=== PATIENT | male | born 1930 | race Caucasian/White ===

== ENCOUNTER → 2017-03-08 | Outpatient (REF) | payer MEDICARE, OTHER ==
[2017-03-08 12:31] LABS: ALBUMIN 3.6 GM/DL (3.2-5.2); ALBUMIN/GLOBULIN RATIO 1.06 (1.00-1.93); BILIRUBIN,TOTAL 0.3 MG/DL (0.2-1.0); CALCIUM LEVEL 9.1 MG/DL (8.8-10.2); CREATININE FOR GFR 1.56 MG/DL (0.70-1.30); GLOMERULAR FILTRATION RATE 45.3 (>35); POTASSIUM SERUM 4.9 MEQ/L (3.5-5.1)
== END ==
LOC: M SFHCPLAZ 09:29
PROVIDERS: ATTEND Internal Medicine
DX: I10 Essential (primary) hypertension (principal); E11.9 Type 2 diabetes mellitus without complications; E78.00 Pure hypercholesterolemia, unspecified

== ENCOUNTER → 2017-07-20 | Outpatient (REF) | payer MEDICARE, OTHER ==
[2017-07-20 13:57] LABS: ALBUMIN 3.6 GM/DL (3.2-5.2); ALBUMIN/GLOBULIN RATIO 1.03 (1.00-1.93); BILIRUBIN,TOTAL 0.5 MG/DL (0.2-1.0); CALCIUM LEVEL 9.5 MG/DL (8.8-10.2); CREATININE FOR GFR 2.02 MG/DL (0.70-1.30); GLOMERULAR FILTRATION RATE 33.5 (>35); MAGNESIUM LEVEL 2.5 MG/DL (1.8-2.4); TOTAL PROTEIN 7.1 GM/DL (6.4-8.2)
[2017-07-20 14:03] LABS: POTASSIUM SERUM 5.4 MEQ/L (3.5-5.1)
[2017-07-20 14:16] LABS: MEAN CORPUSCULAR HEMOGLOBIN 32.7 pg (27.0-33.0); MEAN CORPUSCULAR HGB CONC 34.1 g/dl (32.0-36.5); MEAN CORPUSCULAR VOLUME 95.9 fl (80.0-96.0); RED CELL DISTRIBUTION WIDTH 12.2 % (11.5-14.5); WHITE BLOOD COUNT 4.9 K/mm3 (4.0-10.0)
== END ==
LOC: M SFHCPLAZ 08:25
PROVIDERS: ATTEND Internal Medicine
DX: Z85.46 Personal history of malignant neoplasm of prostate (principal); E11.9 Type 2 diabetes mellitus without complications; I10 Essential (primary) hypertension

== ENCOUNTER → 2018-03-06 | Outpatient (REF) | payer MEDICARE, OTHER ==
[2018-03-06 12:45] LABS: HEMATOCRIT 37.4 % (42.0-52.0); HEMOGLOBIN 12.2 g/dl (13.5-17.5); MEAN CORPUSCULAR HEMOGLOBIN 31.6 pg (27.0-33.0); MEAN CORPUSCULAR HGB CONC 32.6 g/dl (32.0-36.5); MEAN CORPUSCULAR VOLUME 96.9 fl (80.0-96.0); PLATELET COUNT, AUTOMATED 190 10^3/uL (150-450); RED BLOOD COUNT 3.86 10^6/uL (4.30-6.10); RED CELL DISTRIBUTION WIDTH 12.7 % (11.5-14.5); WHITE BLOOD COUNT 5.8 10^3/uL (4.0-10.0)
[2018-03-06 12:54] LABS: ALBUMIN 3.4 GM/DL (3.2-5.2); ALBUMIN/GLOBULIN RATIO 0.94 (1.00-1.93); ALKALINE PHOSPHATASE 117 U/L (45-117); ALT/SGPT 16 U/L (12-78); ANION GAP 4 MEQ/L (8-16); AST/SGOT 12 U/L (7-37); BILIRUBIN,TOTAL 0.3 MG/DL (0.2-1.0); BLOOD UREA NITROGEN 33 MG/DL (7-18); CALCIUM LEVEL 9.3 MG/DL (8.8-10.2); CARBON DIOXIDE LEVEL 27 MEQ/L (21-32); CHLORIDE LEVEL 110 MEQ/L (98-107); CHOLESTEROL LEVEL 162 MG/DL (<200); CHOLESTEROL RISK RATIO 2.281 (<5); CREATININE FOR GFR 1.93 MG/DL (0.70-1.30); GLOMERULAR FILTRATION RATE 35.3 (>35); GLUCOSE, FASTING 141 MG/DL (70-100); HDL CHOLESTEROL 71 MG/DL (>40); LDL CHOLESTEROL 63.6 MG/DL (<100); MAGNESIUM LEVEL 2.4 MG/DL (1.8-2.4); NON-HDL-C 91 MG/DL; SODIUM LEVEL 141 MEQ/L (136-145); TRIGLYCERIDES LEVEL 137 MG/DL (<150)
[2018-03-06 12:55] LABS: POTASSIUM SERUM 5.3 MEQ/L (3.5-5.1)
[2018-03-06 13:45] LABS: MALB URINE SIEMENS 17.6 MG/L; MAU/CREAT RATIO 15.4 MCG/MG (0.0-30.0)
[2018-03-06 14:47] LABS: ESTIMATED AVERAGE GLUCOSE 151 MG/DL (60-110); HEMOGLOBIN A1c 6.9 %
[2018-03-06 20:57] LABS: PTH INTACT 30.8 PG/ML (18.5-88.0)
== END ==
LOC: M SFHCPLAZ 08:10
DX: N18.3 Chronic kidney disease, stage 3 (moderate) (principal); Z85.46 Personal history of malignant neoplasm of prostate; E11.9 Type 2 diabetes mellitus without complications; E78.00 Pure hypercholesterolemia, unspecified; I12.9 Hypertensive chronic kidney disease with stage 1 through stage 4 chronic kidney disease, or unspecified chronic kidney disease
CPT/HCPCS: 83735

== ENCOUNTER → 2018-07-11 | Outpatient (REF) | payer MEDICARE, OTHER ==
[2018-07-11 11:06] LABS: HEMATOCRIT 36.6 % (42.0-52.0); HEMOGLOBIN 12.2 g/dl (13.5-17.5); MEAN CORPUSCULAR HEMOGLOBIN 31.5 pg (27.0-33.0); MEAN CORPUSCULAR HGB CONC 33.3 g/dl (32.0-36.5); MEAN CORPUSCULAR VOLUME 94.6 fl (80.0-96.0); PLATELET COUNT, AUTOMATED 196 10^3/uL (150-450); RED BLOOD COUNT 3.87 10^6/uL (4.30-6.10); RED CELL DISTRIBUTION WIDTH 12.7 % (11.5-14.5)
[2018-07-11 11:46] LABS: ALBUMIN 3.4 GM/DL (3.2-5.2); ALKALINE PHOSPHATASE 120 U/L (45-117); ALT/SGPT 15 U/L (12-78); ANION GAP 6 MEQ/L (8-16); AST/SGOT 13 U/L (7-37); BILIRUBIN,TOTAL 0.4 MG/DL (0.2-1.0); BLOOD UREA NITROGEN 31 MG/DL (7-18); CALCIUM LEVEL 9.6 MG/DL (8.8-10.2); CARBON DIOXIDE LEVEL 28 MEQ/L (21-32); CHLORIDE LEVEL 109 MEQ/L (98-107); CREATININE FOR GFR 1.82 MG/DL (0.70-1.30); GLOMERULAR FILTRATION RATE 37.7 (>35); GLUCOSE, FASTING 135 MG/DL (70-100); MAGNESIUM LEVEL 2.4 MG/DL (1.8-2.4); POTASSIUM SERUM 5.4 MEQ/L (3.5-5.1); SODIUM LEVEL 143 MEQ/L (136-145); TOTAL PROTEIN 7.1 GM/DL (6.4-8.2)
[2018-07-11 12:55] LABS: ALBUMIN/GLOBULIN RATIO 1.09 (1.00-1.93)
[2018-07-11 20:05] LABS: ESTIMATED AVERAGE GLUCOSE 143 MG/DL (60-110); HEMOGLOBIN A1c 6.6 %
== END ==
LOC: M SFHCPLAZ 08:50
DX: N18.3 Chronic kidney disease, stage 3 (moderate) (principal); I10 Essential (primary) hypertension; Z85.46 Personal history of malignant neoplasm of prostate
CPT/HCPCS: 83735

== ENCOUNTER → 2019-03-13 | Outpatient (REF) | payer MEDICARE, OTHER ==
[2019-03-13 10:38] LABS: HEMATOCRIT 36.3 % (42.0-52.0); HEMOGLOBIN 11.5 g/dl (13.5-17.5); MEAN CORPUSCULAR HEMOGLOBIN 30.3 pg (27.0-33.0); MEAN CORPUSCULAR HGB CONC 31.7 g/dl (32.0-36.5); MEAN CORPUSCULAR VOLUME 95.5 fl (80.0-96.0); PLATELET COUNT, AUTOMATED 208 10^3/uL (150-450); WHITE BLOOD COUNT 6.2 10^3/uL (4.0-10.0)
[2019-03-13 10:50] LABS: CREATININE, URINE 46.7 MG/DL; MALB URINE SIEMENS 46.5 MG/L; MAU/CREAT RATIO 99.5 MCG/MG (0.0-30.0)
[2019-03-13 10:54] LABS: ALBUMIN 3.1 GM/DL (3.2-5.2); BILIRUBIN,TOTAL 0.5 MG/DL (0.2-1.0); CALCIUM LEVEL 9.4 MG/DL (8.8-10.2); CHOLESTEROL RISK RATIO 2.135 (<5); CREATININE FOR GFR 1.75 MG/DL (0.70-1.30); GLOMERULAR FILTRATION RATE 39.4 (>35); MAGNESIUM LEVEL 2.1 MG/DL (1.8-2.4); POTASSIUM SERUM 4.8 MEQ/L (3.5-5.1); PTH INTACT 26.8 PG/ML (18.5-88.0)
[2019-03-13 13:23] LABS: HEMOGLOBIN A1c 7.2 %
== END ==
LOC: M SFHCPLAZ 07:46
PROVIDERS: ATTEND Internal Medicine
DX: N18.3 Chronic kidney disease, stage 3 (moderate) (principal); I12.9 Hypertensive chronic kidney disease with stage 1 through stage 4 chronic kidney disease, or unspecified chronic kidney disease; E78.00 Pure hypercholesterolemia, unspecified; E11.9 Type 2 diabetes mellitus without complications; Z85.46 Personal history of malignant neoplasm of prostate

== ENCOUNTER → 2019-03-21 | Outpatient (REF) | payer MEDICARE, OTHER ==
[~2019-03-21] MED LIST: AMOX500C PO; ATOR1TAB19 PO; BENA10TA6 PO; BIMA01SOL OU; CALC600T57 PO; CIPR-250 PO; CLOP75TA2 PO; FURO20TA2 PO; GLYB5TA PO; HYDR10TAB PO; HYDR25TAB PO; KP F1200 PO; LASI20TA3 PO; METO1TAB7 PO; ONETAB9 PO; TIMO0.5S29 OU; TRAM50TA2 PO
[2019-03-21 13:37] LABS: AMORPHOUS SEDIMENT SMALL (NEGATIVE); APPEARANCE, URINE CLEAR (CLEAR); BACTERIA, URINE AUTO NEGATIVE (NEGATIVE); BILIRUBIN, URINE AUTO NEGATIVE (NEGATIVE); BLOOD, URINE BLOOD 1+ (NEGATIVE); COLOR, URINE YELLOW (YELLOW); GLUCOSE, URINE (UA) AUTO 2+ mg/dL (NEGATIVE); KETONE, URINE AUTO NEGATIVE (NEGATIVE); LEUKOCYTE ESTERASE, URINE AUTO 2+ (NEGATIVE); NITRITE, URINE AUTO NEGATIVE (NEGATIVE); PROTEIN, URINE AUTO NEGATIVE (NEGATIVE); RBC, URINE AUTO 20 /HPF (0-3); SQUAMOUS EPITHELIAL CELL UR AU 0 /HPF (0-6); UROBILINOGEN, URINE AUTO 0.2 mg/dL (0.0-2.0); WBC, URINE AUTO 22 /HPF (0-3)
== END ==
LOC: M SFHCPLAZ 10:49
PROVIDERS: ATTEND Internal Medicine
DX: Z87.448 Personal history of other diseases of urinary system (principal)
CPT/HCPCS: 69209; 81001; 87086; G0463

== ENCOUNTER 2019-03-26 07:39 | Inpatient (IN) | payer MEDICARE, OTHER ==
[~2019-03-26] VITALS: Ht 177.8 cm; Wt 88.5 kg
[2019-03-26] MEDS ORDERED: CLOP75TA2 PO (08:03)
[2019-03-26] MEDS ORDERED: HYDR25TAB PO (08:03)
[2019-03-26] MEDS ORDERED: METO1TAB7 PO (08:03)
[2019-03-26] MEDS ORDERED: ATOR1TAB19 PO (08:03)
[2019-03-26] MEDS ORDERED: GLYB5TA PO (08:03)
[2019-03-26] MEDS ORDERED: BENA10TA6 PO (08:03)
[2019-03-26] MEDS ORDERED: AMOX500C PO (08:03)
[2019-03-26 08:20] LABS: BASO # 0.1 10^3/uL (0.0-0.2); BASO % 0.6 % (0.0-1.0); EOS # 0.1 10^3/uL (0.0-0.50); HEMATOCRIT 35.9 % (42.0-52.0); HEMOGLOBIN 11.5 g/dl (13.5-17.5); LYMPH # 2.3 10^3/uL (1.5-4.5); LYMPH % 22.9 % (24.0-44.0); MEAN CORPUSCULAR HEMOGLOBIN 30.2 pg (27.0-33.0); MEAN CORPUSCULAR VOLUME 94.2 fl (80.0-96.0); MONO # 0.6 10^3/uL (0.0-0.8); MONO % 5.7 % (0.0-5.0); NEUTROPHILS # 6.9 10^3/uL (1.8-7.7); NEUTROPHILS % 69.4 % (36.0-66.0); PLATELET COUNT, AUTOMATED 177 10^3/uL (150-450); RED BLOOD COUNT 3.81 10^6/uL (4.30-6.10); WHITE BLOOD COUNT 9.9 10^3/uL (4.0-10.0)
[2019-03-26 08:24] LABS: VENOUS BASE EXCESS -1.7 (-2.0-2.0); VENOUS HCO3 24.1 MEQ/L (23.0-27.0); VENOUS O2 SATURATION 91.9 % (60.0-80.0); VENOUS PARTIAL PRESSURE CO2 45.3 mmHg (38.0-50.0); VENOUS PH 7.344 UNITS (7.330-7.430); VENOUS STANDARD HCO3 22.9 MEQ/L; VENOUS TOTAL CO2 25.5 MEQ/L (24.0-28.0)
--- NOTE | 2019-03-26 08:29 | REP ---
Clinical: Cough and dyspnea. Comparison: None. Findings: Cardiomegaly is appreciated along with diffuse chronic interstitial changes. No obvious focal consolidation or effusion. No pneumothorax. Skeletal structures demonstrate age-related changes. Impression: Cardiomegaly and chronic appearing changes. No focal consolidation or effusion. Electronically Signed by Renny Moscoso MD 03/26/2019 08:21 A
[2019-03-26 08:31] LABS: INR 0.94; PROTHROMBIN TIME 12.7 SECONDS (12.1-14.4)
[2019-03-26 08:49] LABS: ALBUMIN 3.3 GM/DL (3.2-5.2); BILIRUBIN,DIRECT 0.1 MG/DL (0.0-0.2); BILIRUBIN,TOTAL 0.4 MG/DL (0.2-1.0); CALCIUM LEVEL 9.4 MG/DL (8.8-10.2); CREATININE FOR GFR 2.06 MG/DL (0.70-1.30); GLOMERULAR FILTRATION RATE 32.7 (>35); MB/CK RELATIVE INDEX 0.64 (< OR =4); POTASSIUM SERUM 4.1 MEQ/L (3.5-5.1); THYROID STIMULATING HORMONE 2.45 uIU/ML (0.358-3.740); TOTAL PROTEIN 6.7 GM/DL (6.4-8.2); TROPONIN I 0.07 NG/ML (< 0.10)
[2019-03-26] MEDS ORDERED: FUROSEMIDE 100 MG/10 ML VIAL (J1940) IV ONE (09:00)
[2019-03-26] MEDS: METOPROLOL SUCC (TopROL XL) 50MG **XL** TAB PO SCH (09:00)
[2019-03-26] MEDS ORDERED: LISINOPRIL 5 MG TAB PO SCH (09:00)
--- NOTE | 2019-03-26 09:57 | REP ---
Clinical: Bilateral pain and swelling . Technique: Gautam scale and color Doppler evaluation using linear high frequency transducer. Findings: Ultrasound examination of the right and left lower extremity deep venous structures from the common femoral vein to the popliteal vein demonstrates normal compressibility flow and wave patterns in response to respiration and augmentation. There is no evidence for deep venous thrombosis. Incidental bilateral complex Valdez's cysts measuring 2.5 x 0.4 x 1.8 cm on the right and 4.7 x 0.6 x 2.9 cm on the left. Impression: No evidence for deep venous thrombosis. Bilateral Valdez's cyst. Electronically Signed by Renny Moscoso MD 03/26/2019 09:49 A
[2019-03-26 10:56] LABS: MB/CK RELATIVE INDEX 0.9 (< OR =4); TROPONIN I 0.21 NG/ML (< 0.10)
[2019-03-26] MEDS ORDERED: MOM 30ML SUSPENSION UDC PO PRN (12:30)
[2019-03-26] MEDS ORDERED: ACETAMINOPHEN TAB 650MG DOSE (2X325MG) PO PRN (12:30)
[2019-03-26] MEDS ORDERED: MAALOX 30 ML SUSP *UDC PO PRN (12:30)
[2019-03-26] MEDS ORDERED: BIMA01SOL OU (12:39)
[2019-03-26] MEDS ORDERED: TIMO0.5S29 OU (12:39)
[2019-03-26] MEDS ORDERED: DEXTROSE 50% 50 ML SYRINGE IV PRN (12:45)
[2019-03-26] MEDS ORDERED: GLUCAGON FOR INJ 1 MG VIAL (J1610) SC PRN (12:45)
[2019-03-26] MEDS ORDERED: GLUCOSE 4 GM CHEW TABLET PO PRN (12:45)
[2019-03-26] MEDS: HumaLOG INSULIN (NovoLOG) PER UNIT SC SCH ×3 (13:05→20:48)
[2019-03-26 15:00] VITALS: BP 180/68; O2SAT 98
[2019-03-26] MEDS ORDERED: SLF 3 ML SYR IV PRN (15:45)
[2019-03-26 16:00] VITALS: BP 192/72; O2SAT 100
[2019-03-26] MEDS: HEPARIN SOD (PORCINE) 5000 UNITS/ML VIAL SC SCH ×2 (16:06→21:23)
[2019-03-26 17:00] VITALS: O2SAT 99
[2019-03-26] MEDS ORDERED: hydrALAZINE INJ 20 MG/ML VIAL IV PRN (18:45)
[2019-03-26 20:00] VITALS: BP 170/82
[2019-03-26] MEDS: DOCUSATE SODIUM 100 MG CAP PO SCH (21:00)
--- NOTE | 2019-03-26 21:01 | ECGEPIP ---
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
[2019-03-26] MEDS: FUROSEMIDE 40 MG/4 ML VIAL (J1940) IV SCH (21:22)
[2019-03-26] MEDS: CLOPIDOGREL 75 MG TAB PO SCH (21:22)
[2019-03-26] MEDS: ATORVASTATIN 5MG PER 1/2 TABLET PO SCH (21:23)
[2019-03-26] MEDS: SLF 3 ML SYR IV SCH (21:23)
[2019-03-26 23:59] VITALS: BP 162/76
[2019-03-27 03:40] LABS: HEMATOCRIT 34.5 % (42.0-52.0); HEMOGLOBIN 11.1 g/dl (13.5-17.5); MEAN CORPUSCULAR HEMOGLOBIN 29.9 pg (27.0-33.0); MEAN CORPUSCULAR HGB CONC 32.2 g/dl (32.0-36.5); PLATELET COUNT, AUTOMATED 178 10^3/uL (150-450); RED BLOOD COUNT 3.71 10^6/uL (4.30-6.10); WHITE BLOOD COUNT 6.2 10^3/uL (4.0-10.0)
[2019-03-27 04:00] VITALS: BP 175/73
[2019-03-27 04:01] LABS: CREATININE FOR GFR 2.27 MG/DL (0.70-1.30); GLOMERULAR FILTRATION RATE 29.2 (>35); POTASSIUM SERUM 3.8 MEQ/L (3.5-5.1)
[2019-03-27 04:02] LABS: ALBUMIN 2.9 GM/DL (3.2-5.2); BILIRUBIN,TOTAL 0.5 MG/DL (0.2-1.0); CALCIUM LEVEL 8.9 MG/DL (8.8-10.2); TOTAL PROTEIN 6.6 GM/DL (6.4-8.2)
[2019-03-27] MEDS: HEPARIN SOD (PORCINE) 5000 UNITS/ML VIAL SC SCH ×3 (05:42→20:49)
[2019-03-27] MEDS: SLF 3 ML SYR IV SCH ×3 (05:42→20:50)
--- NOTE | 2019-03-27 07:36 | HPEPDOC ---
General Date of Admission March 26, 2019 at 12:27 Date of Service: March 26, 2019 Attending Physician: TORREY RANGEL MD Chief Complaint The patient is a 88-year-old male admitted with a reason for visit of CHF. Source: Patient, Family Exam Limitations: No limitations Timing/Duration: 1-3 hours Severity: Moderate Associated Symptoms: Shortness of breath History of Present Illness White male with past medical history of CAD, hypertension, diabetes, hyperlipidemia, history of pacemaker secondary to sick sinus syndrome developed sudden onset of shortness of breath, 1 hour prior to the presentation in ED, not associated with chest pain, nausea, vomiting. Onset was sudden persistent and resolved while he got treatment in ED. No relief with position or any medication except Lasix and not increased with any position, either. Home Medications Scheduled Amoxicillin (Amoxicillin) 500 Mg Capsule, 2,000 MG PO ASDIRECTED, (Reported) TO TAKE PRIOR TO DENTAL APPT Atorvastatin Calcium (Atorvastatin Calcium) 10 Mg Tablet, 5 MG PO 3XW, (Reported) QHS: MON,WED,TUE Benazepril HCl (Benazepril HCl) 10 Mg Tablet, 10 MG PO DAILY, (Reported) Bimatoprost (Lumigan) 0.01% 2.5ML Drops, 1 DROP OU QHS, (Reported) Clopidogrel Bisulfate (Clopidogrel) 75 Mg Tablet, 75 MG PO QHS, (Reported) Glyburide (Glyburide) 5 Mg Tablet, 5 MG PO DAILY, (Reported) Hydrochlorothiazide (Hydrochlorothiazide) 25 Mg Tablet, 12.5 MG PO DAILY, (R eported) Metoprolol Succinate (Metoprolol Succinate) 50 Mg Tab.er.24h, 50 MG PO DAILY, (Reported) Timolol Maleate (Timolol Maleate) 0.5% 5ML Drops, 1 DROP OU QAM, (Reported) Allergies Coded Allergies: No Known Allergies (Unverified , 03/26/19) Past Medical History Medical History Hypertension, type 2 diabetes mellitus, hyperlipidemia, CAD with 2 stents. 6 sinus syndrome Surgical History History of prostate surgery Social History * Smoker: Denies Drugs: denies A-FIB/CHADSVASC A-FIB History Current/History of A-Fib/PAF?: No Current PO Anticoag Therapy: No Review of Systems Constitutional: Denies: Chills, Fever, Malaise, Night Sweats, Weakness, Fatigue, Weight Loss, Lethargy, Other Eyes: Denies: Pain, Vision change, Conjunctivae inflammation, Eyelid in flammation, Redness, Other ENT: Denies: Head Aches, Ear Pain, Dysphagia, Sinus Congestion, Post Nasal Drip, Sore Throat, Epistaxis, Other Symptoms Skin: Denies: Rash, Lesions, Jaundice, Bruising, Itching, Dry, Breakdown, Nail Changes, Other Pulmonary: Reports: Dyspnea; Denies: Cough, Pleuritic Chest Pain, Other Symptoms Cardiovascular: Denies: Chest Pain, Palpitations, Orthopnea, Paroxysmal Noc. Dyspnea, Edema, Lt Headedness, Other Symptoms Gastrointestinal: Denies: Nausea, Vomiting, Abdominal Pain, Diarrhea, Constipation, Melena, Hematochezia, Other Symptoms Genitourinary: Denies: Dysuria, Frequency, Incontinence, Hematuria, Retention, Other Symptoms Hematologic: Denies: Bruising, Bleeding Excessively, Petecchia, Purpura, Enlarged Lymph Nodes, Other Hematologic Endocrine: Denies: Polydipsia, Polyphagia, Polyuria, Heat Intolerance, Cold Intolerance, Other Endocrine Sx Musculoskeletal: Denies: Neck Pain, Back Pain, Shoulder Pain, Arm Pain, Hand Pain, Leg Pain, Foot Pain, Joint Pain, Muscle Pain, Spasms, Other Symptoms Neurological: Denies: Weakness, Numbness, Incoordination, Change in speech, Confusion, Seizures, Other Symptoms Psych: Denies: Mood Normal, Anxiety, Depression, Memory Issues, Thoughts of Self Harm, Anger, Thoughts of Harming Other, Other Psych Physical Examination General Exam: Positive: Alert, Cooperative Eye Exam: Positive: PERRLA, Conjunctiva & lids normal ENT Exam: Positive: Atraumatic, Mucous membr. moist/pink Neck Exam: Positive: Supple Chest Exam: Positive: Other Heart Exam: Positive: Rate Normal (I lateral basal bronchitis), Normal S1, Normal S2, Murmurs (pansystolic murmur at second intercostal space) Abdomen Exam: Positive: Normal bowel sounds Extremity Exam: Positive: Normal pulses Skin Exam: Positive: Nl turgor and temperature Neuro Exam: Positive: Normal Gait Vital Signs Vital Signs Date Time Temp Pulse Resp B/P (MAP) Pulse Ox O2 Delivery O2 Flow Rate FiO2 03/27/19 04:00 2.0 03/27/19 04:00 96.5 62 20 175/73 (107) 99 03/26/19 17:00 Nasal Cannula Laboratory Data Labs 24H Laboratory Tests 2 03/26/19 08:02: Immature Granulocyte % (Auto) 0.4, White Blood Count 9.9, Red Blood Count 3.81L, Hemoglobin 11.5L, Hematocrit 35.9L, Mean Corpuscular Volume 94.2, Mean Corpuscular Hemoglobin 30.2, Mean Corpuscular Hemoglobin Concent 32.0, Red Cell Distribution Width 13.5, Platelet Count 177, Neutrophils (%) (Auto) 69.4H, Lymphocytes (%) (Auto) 22.9L, Monocytes (%) (Auto) 5.7H, Eosinophils (%) (Auto) 1.0, Basophils (%) (Auto) 0.6, Neutrophils # (Auto) 6.9, Lymphocytes # (Auto) 2.3, Monocytes # (Auto) 0.6, Eosinophils # (Auto) 0.1, Basophils # (Auto) 0.1, Nucleated Red Blood Cells % (auto) 0.0, Prothrombin Time 12.7, Prothromb Time International Ratio 0.94, Blood Gas Bicarbonate Standard 22.9, Venous Blood pH 7.344, Venous Blood Partial Pressure CO2 45.3, Venous Blood Partial Pressure O2 66.0H, Venous Blood Total Carbon Dioxide 25.5, Venous Blood HCO3 24.1, Venous Blood Oxygen Saturation 91.9H, Venous Blood Base Excess -1.7, Anion Gap 9, Glomerular Filtration Rate 32.7L, Lactic Acid Level 2.4*H, Calcium Level 9.4, Aspartate Amino Transf (AST/SGOT) 17, Alanine Aminotransferase (ALT/SGPT) 15, Alkaline Phosphatase 132H, Total Bilirubin 0.4, Direct Bilirubin 0.1, Total Creatine Kinase 408H, Creatine Kinase MB 3.0, Creatine Kinase MB Relative Index 0.64, Troponin I 0.07, YE-Hrn-Y-Type Natriuretic Peptide 4990H, Total Protein 6.7, Albumin 3.3, Albumin/Globulin Ratio 0.97L, Thyroid Stimulating Hormone (TSH) 2.450 03/26/19 10:06: Total Creatine Kinase 398H, Creatine Kinase MB 4.0H, Creatine Kinase MB Relative Index 0.90, Troponin I 0.21#H 03/26/19 12:21: Lactic Acid Followup at 4 Hours 1.6 03/26/19 12:57: Bedside Glucose (Misc Panel) 107 03/26/19 16:34: Bedside Glucose (Misc Panel) 203H 03/26/19 19:28: Troponin I 0.93#H 03/26/19 20:47: Bedside Glucose (Misc Panel) 113H 03/27/19 03:22: Troponin I 0.63#H, Nucleated Red Blood Cells % (auto) 0.0, Anion Gap 10, Glomerular Filtration Rate 29.2L, Blood Urea Nitrogen 42H, Creatinine 2.27H, Sodium Level 145, Potassium Level 3.8, Chloride Level 103, Carbon Dioxide Level 32, Calcium Level 8.9, Aspartate Amino Transf (AST/SGOT) 16, Alanine Am inotransferase (ALT/SGPT) 14, Alkaline Phosphatase 118H, Total Bilirubin 0.5, Total Protein 6.6, Albumin 2.9L, Magnesium Level 2.0, NA-Nwp-G-Type Natriuretic Peptide 92448O, Albumin/Globulin Ratio 0.78L CBC/BMP Laboratory Tests 03/26/19 08:02 Red Blood Count 3.81 L, Mean Corpuscular Volume 94.2, Mean Corpuscular Hemoglobin 30.2, Mean Corpuscular Hemoglobin Concent 32.0, Red Cell Distribution Width 13.5, Neutrophils (%) (Auto) 69.4 H, Lymphocytes (%) (Auto) 22.9 L, Monocytes (%) (Auto) 5.7 H, Eosinophils (%) (Auto) 1.0, Basophils (%) (Auto) 0.6, Neutrophils # (Auto) 6.9, Lymphocytes # (Auto) 2.3, Monocytes # (Auto) 0.6, Eosinophils # (Auto) 0.1, Basophils # (Auto) 0.1 03/27/19 03:22 Red Blood Count 3.71 L, Mean Corpuscular Volume 93.0, Mean Corpuscular Hemoglobin 29.9, Mean Corpuscular Hemoglobin Concent 32.2, Red Cell Distribution Width 13.6, Calcium Level 8.9, Aspartate Amino Transf (AST/SGOT) 16, Alanine Aminotransferase (ALT/SGPT) 14, Alkaline Phosphatase 118 H, Total Bilirubin 0.5, Total Protein 6.6, Albumin 2.9 L Microbiology Microbiology 03/26/19 Blood Culture, Received Pending 03/26/19 Blood Culture, Received Pending Problems (1) CHF (congestive heart failure) Status: Acute Response to Treatment: Improving Problem Specific Plan: Consult Specialist Problem Text: Admit to PCU Telemetry monitoring Strict intake and output Lasix 40 mg IV every 12 hours Control hypertension with hydralazine when necessary add lisinopril 5 mg by mouth daily Continue home meds including beta blockers and statins Cardiology consult was called from the ED Dr. Montes to see the patient Bed rest with bathroom privileges DVT prophylaxis with Lovenox Diet 2 g sodium Discussed with patient and his at bedside Plan / VTE VTE Prophylaxis Ordered?: Yes TORREY RANGEL MD March 27, 2019 07:35
[2019-03-27 08:00] VITALS: BP 184/80
[2019-03-27] MEDS: LISINOPRIL 5 MG TAB PO SCH (08:19)
[2019-03-27] MEDS: HumaLOG INSULIN (NovoLOG) PER UNIT SC SCH ×4 (08:19→20:47)
[2019-03-27] MEDS: FUROSEMIDE 40 MG/4 ML VIAL (J1940) IV SCH ×2 (08:20→20:48)
[2019-03-27] MEDS: **hydrALAZINE** 10 MG TAB PO SCH ×3 (08:20→20:49)
[2019-03-27] MEDS: DOCUSATE SODIUM 100 MG CAP PO SCH ×2 (08:21→20:48)
[2019-03-27] MEDS: METOPROLOL SUCC (TopROL XL) 50MG **XL** TAB PO SCH (08:21)
--- NOTE | 2019-03-27 11:06 | IPNPDOC ---
Subjective Date Seen The patient was seen on 03/27/19. Subjective Chief Complaint/HPI GEN. Feels much better. Shortness of breath has resolved. The he put out 2.5 L of urine last 24 hours General: Denies: ROS Unobtainable, Chills, Night Sweats, Fatigue, Malaise, Normal Appetite, Other Symptoms Constitutional: Denies: Chills, Fever, Malaise, Night Sweats, Weakness, Fatigue, Weight Loss, Lethargy, Other Eyes: Denies: Pain, Vision change, Conjunctivae inflammation, Eyelid inflammation, Redness, Other ENT: Denies: Head Aches, Ear Pain, Dysphagia, Sinus Congestion, Post Nasal Drip, Sore Throat, Epistaxis, Other Symptoms Skin: Denies: Rash, Lesions, Jaundice, Bruising, Itching, Dry, Breakdown, Nail Changes, Other Pulmonary: Denies: Dyspnea, Cough, Pleuritic Chest Pain, Other Symptoms Cardiovascular: Denies: Chest Pain, Palpitations, Orthopnea, Paroxysmal Noc. Dyspnea, Edema, Lt Headedness, Other Symptoms Gastrointestinal: Denies: Nausea, Vomiting, Abdominal Pain, Diarrhea, Constipation, Melena, Hematochezia, Other Symptoms Genitourinary: Denies: Dysuria, Frequency, Incontinence, Hematuria, Retention, Other Symptoms Hematologic: Denies: Bruising, Bleeding Excessively, Petecchia, Purpura, Enlarged Lymph Nodes, Other Hematologic Endocrine: Denies: Polydipsia, Polyphagia, Polyuria, Heat Intolerance, Cold Intolerance, Other Endocrine Sx Musculoskeletal: Denies: Neck Pain, Back Pain, Shoulder Pain, Arm Pain, Hand Pain, Leg Pain, Foot Pain, Joint Pain, Muscle Pain, Spasms, Other Symptoms Neurological: Denies: Weakness, Numbness, Incoordination, Change in speech, Confusion, Seizures, Other Symptoms Objective Physical Examination General Exam: Positive: Alert, Cooperative Eye Exam: Positive: PERRLA, Conjunctiva & lids normal ENT Exam: Positive: Atraumatic, Mucous membr. moist/pink Neck Exam: Positive: Supple Chest Exam: Positive: Other Heart Exam: Positive: Rate Normal (I lateral basal bronchitis), Normal S1, Normal S2, Murmurs (pansystolic murmur at second intercostal space) Abdomen Exam: Positive: Normal bowel sounds Extremity Exam: Positive: Normal pulses Skin Exam: Positive: Nl turgor and temperature Neuro Exam: Positive: Normal Gait Assessment /Plan Problems (1) CHF (congestive heart failure) Status: Acute Response to Treatment: Improving Problem Specific Plan: Consult Specialist Problem Text: Responding very well to IV diuresis . His output was 2.5 L in the last 24 hours Will continue the same medication and monitor electrolytes Troponin was high secondary to ischemia demand secondary to CHF Will order 2 more troponins to see the trend which is trending down Considering patient's high blood pressure. I'll start him on hydralazine 10 mg by mouth every 8 hours Is no pleural has been increased to 10 mg by mouth daily , We will closely monitor patient's blood pressure status and change medication accordingly Out of bed as tolerated Plan/VTE VTE Prophylaxis Ordered?: Yes VS, I&O, [facility]H, [facility] Vital Signs/I&O Vital Signs Date Time Temp Pulse Resp B/P (MAP) Pulse Ox O2 Delivery O2 Flow Rate FiO2 03/27/19 08:21 60 03/27/19 08:19 184/80 03/27/19 08:00 97.7 20 98 2.0 03/26/19 17:00 Nasal Cannula I&O- Last 24 Hours up to 6 AM 03/27/19 06:00 Intake Total 900 ml Output Total 3455 ml Balance -2555 ml Laboratory Data 24H LABS Laboratory Tests 2 03/26/19 12:21: Lactic Acid Followup at 4 Hours 1.6 03/26/19 12:57: Bedside Glucose (Misc Panel) 107 03/26/19 16:34: Bedside Glucose (Misc Panel) 203H 03/26/19 19:28: Troponin I 0.93#H 03/26/19 20:47: Bedside Glucose (Misc Panel) 113H 03/27/19 03:22: Nucleated Red Blood Cells % (auto) 0.0, Anion Gap 10, Glomerular Filtration Rate 29.2L, Blood Urea Nitrogen 42H, Creatinine 2.27H, Sodium Level 145, Potassium Level 3.8, Chloride Level 103, Carbon Dioxide Level 32, Calcium Level 8.9, Aspartate Amino Transf (AST/SGOT) 16, Alanine Aminotransferase (ALT/SGPT) 14, Alkaline Phosphatase 118H, Total Bilirubin 0.5, Total Protein 6.6, Albumin 2.9L, Magnesium Level 2.0, Troponin I 0.63#H, UD-Kzn-P-Type Natriuretic Peptide 82257J, Albumin/Globulin Ratio 0.78L CBC/BMP Laboratory Tests 03/27/19 03:22 Red Blood Count 3.71 L, Mean Corpuscular Volume 93.0, Mean Corpuscular Hemoglobin 29.9, Mean Corpuscular Hemoglobin Concent 32.2, Red Cell Distribution Width 13.6, Calcium Level 8.9, Aspartate Amino Transf (AST/SGOT) 16, Alanine Aminotransferase (ALT/SGPT) 14, Alkaline Phosphatase 118 H, Total Bilirubin 0.5, Total Protein 6.6, Albumin 2.9 L Microbiology Microbiology 03/26/19 Blood Culture - Preliminary, Resulted No growth after 24 hours . All specim... 03/26/19 Blood Culture - Preliminary, Resulted No growth after 24 hours . All specim... TORREY RANGEL MD March 27, 2019 11:06
[2019-03-27 12:00] VITALS: BP 183/77
[2019-03-27 16:00] VITALS: BP 178/70
--- NOTE | 2019-03-27 17:32 | ECHO ---
DATE OF PROCEDURE: 03/27/2019 REFERRING PHYSICIAN: Filiberto Morrell MD INDICATION: Dyspnea. HEIGHT: 178 cm WEIGHT: 93 kg 2D MEASUREMENTS: Ventricular septum: 1.1 cm Posterior wall: 1.23 cm Left ventricle diastole: 5.1 cm Aortic annulus: 2.0 cm Left atrium: 4.0 cm Left atrial volume index: 40 Inferior vena cava: 2.0 cm DOPPLER MEASUREMENTS: Mild aortic regurgitation. Moderate aortic stenosis. Peak aortic valve velocity: 326 cm/s Peak aortic valve gradient: 43 mmHg Mean aortic valve gradient: 23 mmHg Aortic valve VTI: 7.3 6 cm Dimensionless index: 0.31 Aortic valve area: (continuity equation, VTI): 0.99 cm2. LVOT velocity: 84.2 cm/s LVOT VTI: 23.1 cm Mild mitral regurgitation. No mitral stenosis. Mitral E velocity: 137 cm/s (pulse wave). Mitral A velocity: 71.0 cm/s (pulse wave). Mitral deceleration time: 306 ms Trace tricuspid regurgitation. No pulmonic regurgitation. MITRAL ANNULAR TISSUE DOPPLER: E prime septal: 4.1 cm/s E prime lateral: 7.8 cm/s DESCRIPTION: Rhythm was atrioventricular (AV) sequentially paced at 60 beats per minute. Image quality was fair. No pericardial effusion. This was a 2D, M-mode, color flow Doppler and pulse wave Doppler examination that included mitral annular tissue Doppler. CONCLUSIONS: 1. Paradoxical septal motion with moderate reduction overall left ventricle (LV) systolic function. Left ventricular ejection fraction (LVEF) 40%-45% by visual estimate. Grade II LV diastolic dysfunction (pseudonormal LV filling pattern). 2. Severe left atrial dilatation by left atrial volume index. 3. Moderate focal thickening and focal calcific deposits of a three-cuspid aortic valve. Moderate aortic stenosis and mild aortic regurgitation. 4. Moderate mitral annular calcification. No mitral stenosis. Mild mitral regurgitation. 5. Normal right ventricle size and systolic function. Pulmonary artery systolic pressure cannot be estimated accurately on this study. 6. Presence of endocardial, right atrial and right ventricle pacemaker leads.
[2019-03-27 20:00] VITALS: BP 164/70
[2019-03-27] MEDS: CLOPIDOGREL 75 MG TAB PO SCH (20:49)
[2019-03-27 23:59] VITALS: BP 146/78
[2019-03-28] VITALS (16 sets, daily range): BP systolic 120–168; BP diastolic 56–78; O2SAT 89–99
[2019-03-28] MEDS: SLF 3 ML SYR IV SCH ×3 (05:14→21:01)
[2019-03-28] MEDS: **hydrALAZINE** 10 MG TAB PO SCH ×3 (05:44→20:59)
[2019-03-28] MEDS: HEPARIN SOD (PORCINE) 5000 UNITS/ML VIAL SC SCH ×3 (05:45→21:01)
[2019-03-28 05:55] LABS: BASO % 0.6 % (0.0-1.0); EOS # 0.1 10^3/uL (0.0-0.50); EOS % 2.1 % (0.0-3.0); HEMOGLOBIN 12.2 g/dl (13.5-17.5); LYMPH # 1.7 10^3/uL (1.5-4.5); LYMPH % 26.1 % (24.0-44.0); MEAN CORPUSCULAR HEMOGLOBIN 30.3 pg (27.0-33.0); MEAN CORPUSCULAR HGB CONC 32.1 g/dl (32.0-36.5); MEAN CORPUSCULAR VOLUME 94.5 fl (80.0-96.0); MONO # 0.9 10^3/uL (0.0-0.8); MONO % 12.9 % (0.0-5.0); NEUTROPHILS # 3.9 10^3/uL (1.8-7.7); PLATELET COUNT, AUTOMATED 193 10^3/uL (150-450); RED BLOOD COUNT 4.02 10^6/uL (4.30-6.10); WHITE BLOOD COUNT 6.7 10^3/uL (4.0-10.0)
[2019-03-28 06:27] LABS: ALBUMIN 2.9 GM/DL (3.2-5.2); BILIRUBIN,TOTAL 0.7 MG/DL (0.2-1.0); CALCIUM LEVEL 9.3 MG/DL (8.8-10.2); CREATININE FOR GFR 2.4 MG/DL (0.70-1.30); GLOMERULAR FILTRATION RATE 27.4 (>35); MAGNESIUM LEVEL 2.2 MG/DL (1.8-2.4); POTASSIUM SERUM 4.3 MEQ/L (3.5-5.1); TOTAL PROTEIN 7.4 GM/DL (6.4-8.2)
[2019-03-28] MEDS: DOCUSATE SODIUM 100 MG CAP PO SCH ×2 (08:32→20:58)
[2019-03-28] MEDS: LISINOPRIL 5 MG TAB PO SCH (08:32)
[2019-03-28] MEDS: METOPROLOL SUCC (TopROL XL) 50MG **XL** TAB PO SCH (08:32)
[2019-03-28] MEDS: FUROSEMIDE 40 MG/4 ML VIAL (J1940) IV SCH (08:32)
[2019-03-28] MEDS: HumaLOG INSULIN (NovoLOG) PER UNIT SC SCH ×4 (08:33→20:59)
[2019-03-28] MEDS: TIMOLOL MALEATE 0.5% OPHTH SOLN 5 ML OU SCH (09:00)
--- NOTE | 2019-03-28 11:06 | IPNPDOC ---
Subjective Date Seen The patient was seen on 03/28/19. Subjective Chief Complaint/HPI Patient offers no new complaint wishes to go home and respiratory status much better. No more shortness of breath, patient, and son at the bedside General: Denies: ROS Unobtainable, Chills, Night Sweats, Fatigue, Malaise, Normal Appetite, Other Symptoms Constitutional: Denies: Chills, Fever, Malaise, Night Sweats, Weakness, Fatigue, Weight Loss, Lethargy, Other Eyes: Denies: Pain, Vision change, Conjunctivae inflammation, Eyelid inflammation, Redness, Other ENT: Denies: Head Aches, Ear Pain, Dysphagia, Sinus Congestion, Post Nasal Drip, Sore Throat, Epistaxis, Other Symptoms Skin: Denies: Rash, Lesions, Jaundice, Bruising, Itching, Dry, Breakdown, Nail Changes, Other Pulmonary: Denies: Dyspnea, Cough, Pleuritic Chest Pain, Other Symptoms Cardiovascular: Denies: Chest Pain, Palpitations, Orthopnea, Paroxysmal Noc. Dyspnea, Edema, Lt Headedness, Other Symptoms Gastrointestinal: Denies: Nausea, Vomiting, Abdominal Pain, Diarrhea, Constipation, Melena, Hematochezia, Other Symptoms Genitourinary: Denies: Dysuria, Frequency, Incontinence, Hematuria, Retention, Other Symptoms Hematologic: Denies: Bruising, Bleeding Excessively, Petecchia, Purpura, Enlarged Lymph Nodes, Other Hematologic Endocrine: Denies: Polydipsia, Polyphagia, Polyuria, Heat Intolerance, Cold Intolerance, Other Endocrine Sx Musculoskeletal: Denies: Neck Pain, Back Pain, Shoulder Pain, Arm Pain, Hand Pain, Leg Pain, Foot Pain, Joint Pain, Muscle Pain, Spasms, Other Symptoms Neurological: Denies: Weakness, Numbness, Incoordination, Change in speech, Confusion, Seizures, Other Symptoms Psych: Denies: Mood Normal, Anxiety, Depression, Memory Issues, Thoughts of Self Harm, Anger, Thoughts of Harming Other, Other Psych Objective Physical Examination General Exam: Positive: Alert, Cooperative Eye Exam: Positive: PERRLA, Conjunctiva & lids normal ENT Exam: Positive: Atraumatic, Mucous membr. moist/pink Neck Exam: Positive: Supple Chest Exam: Positive: Clear to auscultation, Other Heart Exam: Positive: Rate Normal, Normal S1, Normal S2, Murmurs Abdomen Exam: Positive: Normal bowel sounds Extremity Exam: Positive: Normal pulses Skin Exam: Positive: Nl turgor and temperature Neuro Exam: Positive: Normal Gait Assessment /Plan Problems (1) CHF (congestive heart failure) Status: Acute Response to Treatment: Improving Problem Specific Plan: Consult Specialist Problem Text: Patient responded very well to IV diuresis Changed to by mouth hydrochlorothiazide as it has been taken every other day but will switch to every day Dr. Montes was called for cardiology consultation. He was patient today Responding very well to IV diuresis Blood pressure is also under well control with the addition of lisinopril and hydralazine. Further, as per cardiology recommendations Possible discharge once cleared by cardiology ECHO : CONCLUSIONS: 1. Paradoxical septal motion with moderate reduction overall left ventricle (LV) systolic function. Left ventricular ejection fraction (LVEF) 40%-45% by visual estimate. Grade II LV diastolic dysfunction (pseudonormal LV filling pattern). 2. Severe left atrial dilatation by left atrial volume index. 3. Moderate focal thickening and focal calcific deposits of a three-cuspid aortic valve. Moderate aortic stenosis and mild aortic regurgitation. 4. Moderate mitral annular calcification. No mitral stenosis. Mild mitral regurgitation. 5. Normal right ventricle size and systolic function. Pulmonary artery systolic pressure cannot be estimated accurately on this study. 6. Presence of endocardial, right atrial and right ventricle pacemaker leads. Plan/VTE VTE Prophylaxis Ordered?: Yes VS, I&O, 24H, Fishbone Vital Signs/I&O Vital Signs Date Time Temp Pulse Resp B/P (MAP) Pulse Ox O2 Delivery O2 Flow Rate FiO2 03/28/19 08:32 158/70 03/28/19 08:32 60 03/28/19 07:55 97.8 18 99 1.0 03/26/19 17:00 Nasal Cannula I&O- Last 24 Hours up to 6 AM 03/28/19 05:59 Intake Total 480 ml Output Total 2000 ml Balance -1520 ml Laboratory Data 24H LABS Laboratory Tests 2 03/27/19 11:39: Troponin I 0.37#H 03/27/19 11:46: Bedside Glucose (Misc Panel) 171H 03/27/19 17:04: Bedside Glucose (Misc Panel) 181H 03/27/19 17:42: Troponin I 0.38H 03/27/19 20:45: Bedside Glucose (Misc Panel) 149H 03/28/19 05:25: Immature Granulocyte % (Auto) 0.3, White Blood Count 6.7, Red Blood Count 4.02L, Hemoglobin 12.2L, Hematocrit 38.0L, Mean Corpuscular Volume 94.5, Mean Corpuscular Hemoglobin 30.3, Mean Corpuscular Hemoglobin Concent 32.1, Red Cell Distribution Width 13.4, Platelet Count 193, Neutrophils (%) (Auto) 58.0, Lympho cytes (%) (Auto) 26.1, Monocytes (%) (Auto) 12.9H, Eosinophils (%) (Auto) 2.1, Basophils (%) (Auto) 0.6, Neutrophils # (Auto) 3.9, Lymphocytes # (Auto) 1.7, Monocytes # (Auto) 0.9H, Eosinophils # (Auto) 0.1, Basophils # (Auto) 0.0, Nucleated Red Blood Cells % (auto) 0.0, Anion Gap 8, Glomerular Filtration Rate 27.4L, Blood Urea Nitrogen 43H, Creatinine 2.40H, Sodium Level 141, Potassium Level 4.3, Chloride Level 100, Carbon Dioxide Level 33H, Calcium Level 9.3, Aspartate Amino Transf (AST/SGOT) 43H, Alanine Aminotransferase (ALT/SGPT) 16, Alkaline Phosphatase 118H, Total Bilirubin 0.7, Total Protein 7.4, Albumin 2.9L, Magnesium Level 2.2, TT-Fhx-F-Type Natriuretic Peptide 8069H, Albumin/Globulin Ratio 0.64L CBC/BMP Laboratory Tests 03/28/19 05:25 Red Blood Count 4.02 L, Mean Corpuscular Volume 94.5, Mean Corpuscular Hemoglobin 30.3, Mean Corpuscular Hemoglobin Concent 32.1, Red Cell Distribution Width 13.4, Neutrophils (%) (Auto) 58.0, Lymphocytes (%) (Auto) 26.1, Monocytes (%) (Auto) 12.9 H, Eosinophils (%) (Auto) 2.1, Basophils (%) (Auto) 0.6, Neutrophils # (Auto) 3.9, Lymphocytes # (Auto) 1.7, Monocytes # (Auto) 0.9 H, Eosinophils # (Auto) 0.1, Basophils # (Auto) 0.0, Calcium Level 9.3, Aspartate Amino Transf (AST/SGOT) 43 H, Alanine Aminotransferase (ALT/SGPT) 16, Alkaline Phosphatase 118 H, Total Bilirubin 0.7, Total Protein 7.4, Albumin 2.9 L Microbiology Microbiology 03/26/19 Blood Culture - Preliminary, Resulted No Growth after 48 hours. All Specime... 03/26/19 Blood Culture - Preliminary, Resulted No Growth after 48 hours. All Specime... TORREY RANGEL MD March 28, 2019 11:06
[2019-03-28] MEDS: ATORVASTATIN 5MG PER 1/2 TABLET PO SCH (20:58)
[2019-03-28] MEDS: CLOPIDOGREL 75 MG TAB PO SCH (20:58)
[2019-03-28] MEDS ORDERED: [UNRECOGNIZED DRUG - OTHER] OU SCH (21:00)
[2019-03-29 04:00] VITALS: BP 158/62
[2019-03-29] MEDS: **hydrALAZINE** 10 MG TAB PO SCH (05:26)
[2019-03-29] MEDS: HEPARIN SOD (PORCINE) 5000 UNITS/ML VIAL SC SCH (05:26)
[2019-03-29] MEDS: SLF 3 ML SYR IV SCH (05:26)
[2019-03-29 05:31] LABS: HEMATOCRIT 36.2 % (42.0-52.0); HEMOGLOBIN 11.9 g/dl (13.5-17.5); MEAN CORPUSCULAR HEMOGLOBIN 30.1 pg (27.0-33.0); MEAN CORPUSCULAR HGB CONC 32.9 g/dl (32.0-36.5); MEAN CORPUSCULAR VOLUME 91.4 fl (80.0-96.0); PLATELET COUNT, AUTOMATED 176 10^3/uL (150-450); RED BLOOD COUNT 3.96 10^6/uL (4.30-6.10); WHITE BLOOD COUNT 7.3 10^3/uL (4.0-10.0)
[2019-03-29 06:00] LABS: BILIRUBIN,TOTAL 0.5 MG/DL (0.2-1.0); CALCIUM LEVEL 9.4 MG/DL (8.8-10.2); CREATININE FOR GFR 2.22 MG/DL (0.70-1.30); POTASSIUM SERUM 3.2 MEQ/L (3.5-5.1); TOTAL PROTEIN 6.5 GM/DL (6.4-8.2)
[2019-03-29 08:00] VITALS: BP 160/66
[2019-03-29] MEDS ORDERED: POTASSIUM CHLORIDE 10 MEQ SR TABLET PO ONE (08:15)
[2019-03-29 08:24] VITALS: BP 160/66
[2019-03-29] MEDS: DOCUSATE SODIUM 100 MG CAP PO SCH (08:24)
[2019-03-29] MEDS: METOPROLOL SUCC (TopROL XL) 50MG **XL** TAB PO SCH (08:24)
[2019-03-29] MEDS: LISINOPRIL 5 MG TAB PO SCH (08:24)
[2019-03-29] MEDS: HumaLOG INSULIN (NovoLOG) PER UNIT SC SCH (08:25)
[2019-03-29] MEDS: TIMOLOL MALEATE 0.5% OPHTH SOLN 5 ML OU SCH (08:26)
[2019-03-29] MEDS ORDERED: FUROSEMIDE 20 MG TAB PO SCH (09:00)
[2019-03-29] MEDS ORDERED: hydroCHLOROthiazide 25 MG TAB PO SCH (09:00)
[2019-03-29] MEDS ORDERED: HYDR10TAB PO ×2 (10:25→12:43)
[2019-03-29] MEDS ORDERED: FURO20TA2 PO (10:25)
--- NOTE | 2019-03-29 11:02 | DS.PDOC ---
Discharge Summary General Date of Admission March 26, 2019 at 12:27 Date of Discharge 03/29/2019 Attending Physician: TORREY RANGEL MD Discharge Summary PROCEDURES PERFORMED DURING STAY: [None]. ADMITTING DIAGNOSES: 1. [Acute systolic congestive heart failure]. DISCHARGE DIAGNOSES: 1. [Acute systolic congestive heart failure, uncontrolled hypertension]. COMPLICATIONS/CHIEF COMPLAINT: CHF. 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 Onset was sudden persistent and resolved while he got treatment in ED. No relief with position or any medication except Lasix and not increased with any position, either.]. HOSPITAL COURSE: [Problem Text: Patient responded very well to IV diuresis Changed to by mouth hydrochlorothiazide as it has been taken every other day but will switch to every day Discussed with Dr. Montes over the phone this morning, he suggested to DC hydrochlorothiazide and start patient on Lasix 20 mg daily, As patient is already on jaswinder inhibitors will not aid, potassium to avoid h yperkalemia Continue hydralazine as per orders Patient will follow with Dr. Montes in one week for adjustment of his medications blood pressure is also under well control with the addition of lisinopril and hydralazine. Discharge patient home today ECHO : CONCLUSIONS: 1. Paradoxical septal motion with moderate reduction overall left ventricle (LV) systolic function. Left ventricular ejection fraction (LVEF) 40%-45% by visual estimate. Grade II LV diastolic dysfunction (pseudonormal LV filling pattern). 2. Severe left atrial dilatation by left atrial volume index. 3. Moderate focal thickening and focal calcific deposits of a three-cuspid aortic valve. Moderate aortic stenosis and mild aortic regurgitation. 4. Moderate mitral annular calcification. No mitral stenosis. Mild mitral regurgitation. 5. Normal right ventricle size and systolic function. Pulmonary artery systolic pressure cannot be estimated accurately on this study. 6. Presence of endocardial, right atrial and right ventricle pacemaker leads.]. DISCHARGE MEDICATIONS: Please see below. ALLERGIES: Please see below. PHYSICAL EXAMINATION ON DISCHARGE: VITAL SIGNS: Please see below. GENERAL: [Within normal limits] HEENT: [PERRLA] NECK: [Supple, no JVD, no lymphadenopathy] CARDIOVASCULAR EXAMINATION: [S1, S2, regular] RESPIRATORY EXAMINATION: [Clear to A&P] ABDOMINAL EXAMINATION: [Benign] EXTREMITIES: [No clubbing, cyanosis, edema] SKIN: [Within normal limits] NEUROLOGICAL EXAMINATION: [. No focal motor sensory deficit] PSYCHIATRIC EXAMINATION: [Within normal limits] LABORATORY DATA: Please see below. IMAGING: [As per EMR] PROGNOSIS: [Good] ACTIVITY: [As tolerated]. DIET: [Low-salt diet] DISCHARGE PLAN: [Follow with Dr. Montes in one week] DISPOSITION: . Home DISCHARGE INSTRUCTIONS: 1. [As above]. ITEMS TO FOLLOWUP ON ON OUTPATIENT: 1. [As above]. DISCHARGE CONDITION: [Stable]. TIME SPENT ON DISCHARGE: 42 minutes. Vital Signs/I&Os Vital Signs Date Time Temp Pulse Resp B/P (MAP) Pulse Ox O2 Delivery O2 Flow Rate FiO2 03/29/19 08:24 160/66 03/29/19 08:24 61 03/29/19 08:00 97.8 18 97 03/28/19 18:00 Room Air 03/28/19 07:55 1.0 I&O- Last 24 Hours up to 6 AM 03/29/19 06:00 Intake Total 960 ml Output Total 1425 ml Balance -465 ml Laboratory Data Labs 24H Laboratory Tests 2 03/28/19 11:38: Bedside Glucose (Misc Panel) 190H 03/28/19 17:11: Bedside Glucose (Misc Panel) 159H 03/28/19 20:18: Bedside Glucose (Misc Panel) 192H 03/29/19 05:18: Nucleated Red Blood Cells % (auto) 0.0, Anion Gap 8, Glomerular Filtration Rate 30.0L, Blood Urea Nitrogen 47H, Creatinine 2.22H, Sodium Level 140, Potassium Level 3.2#L, Chloride Level 102, Carbon Dioxide Level 30, Calcium Level 9.4, Aspartate Amino Transf (AST/SGOT) 14, Alanine Aminotransferase (ALT/SGPT) 8L, Alkaline Phosphatase 106, Total Bilirubin 0.5, Total Protein 6.5, Albumin 3.0L, Magnesium Level 2.0, Albumin/Globulin Ratio 0.86L CBC/BMP Laboratory Tests 03/29/19 05:18 Red Blood Count 3.96 L, Mean Corpuscular Volume 91.4, Mean Corpuscular Hemoglobin 30.1, Mean Corpuscular Hemoglobin Concent 32.9, Red Cell Distribution Width 13.4, Calcium Level 9.4, Aspartate Amino Transf (AST/SGOT) 14, Alanine Aminotransferase (ALT/SGPT) 8 L, Alkaline Phosphatase 106, Total Bilirubin 0.5, Total Protein 6.5, Albumin 3.0 L FSBS Laboratory Tests Test 03/28/19 11:38 03/28/19 17:11 03/28/19 20:18 Range/Units Bedside Glucose (Misc Panel) 190 159 192 83-110 MG/DL Microbiology Microbiology 03/26/19 Blood Culture - Preliminary, Resulted No Growth after 72 hours. All specime... 03/26/19 Blood Culture - Preliminary, Resulted No Growth after 72 hours. All specime... Discharge Medications Scheduled Amoxicillin (Amoxicillin) 500 Mg Capsule, 2,000 MG PO ASDIRECTED, (Reported) TO TAKE PRIOR TO DENTAL APPT Atorvastatin Calcium (Atorvastatin Calcium) 10 Mg Tablet, 5 MG PO 3XW, (Reported) QHS: MON,WED,TUE Benazepril HCl (Benazepril HCl) 10 Mg Tablet, 10 MG PO DAILY, (Reported) Bimatoprost (Lumigan) 0.01% 2.5ML Drops, 1 DROP OU QHS, (Reported) Clopidogrel Bisulfate (Clopidogrel) 75 Mg Tablet, 75 MG PO QHS, (Reported) Furosemide (Furosemide) 20 Mg Tablet, 20 MG PO DAILY Glyburide (Glyburide) 5 Mg Tablet, 5 MG PO DAILY, (Reported) Hydralazine HCl (Hydralazine HCl) 10 Mg Tablet, 10 MG PO Q8H Metoprolol Succinate (Metoprolol Succinate) 50 Mg Tab.er.24h, 50 MG PO DAILY, (Reported) Timolol Maleate (Timolol Maleate) 0.5% 5ML Drops, 1 DROP OU QAM, (Reported) Allergies Coded Allergies: No Known Allergies (Unverified , 03/26/19) TORREY RANGEL MD March 29, 2019 11:02
[2019-03-29] MEDS ORDERED: LASI20TA3 PO (12:42)
== END 2019-03-29 12:07 | disposition home or self-care (01) | DRG 291 ==
LOC: EDBD 07:39 → M ED 07:39 → M ED INP 12:27 → M PCU 14:55
PROVIDERS: ADMIT Internal Medicine; ATTEND Internal Medicine
DX: I11.0 Hypertensive heart disease with heart failure (principal); I50.21 Acute systolic (congestive) heart failure; I25.10 Atherosclerotic heart disease of native coronary artery without angina pectoris; E11.9 Type 2 diabetes mellitus without complications; E78.5 Hyperlipidemia, unspecified; Z95.0 Presence of cardiac pacemaker; Z79.84 Long term (current) use of oral hypoglycemic drugs; Z79.899 Other long term (current) drug therapy; Z95.5 Presence of coronary angioplasty implant and graft

== ENCOUNTER → 2019-03-30 | Outpatient (CLI) | payer MEDICARE, OTHER ==
--- NOTE | 2019-03-30 14:00 | REP ---
Clinical: Hematuria. Technique: Real time angeles scale and color evaluation using curved array transducer. Findings: The bilateral kidneys demonstrate cortical thinning and severe hydronephrosis and proximal hydroureter. Evaluation of the pelvis demonstrates a right distal ureteral stone measuring 15 mm and distal left ureteral stone measuring 10 mm suggesting bilateral obstruction. The bladder is relatively collapsed. Right kidney measures 10.8 x 3.9 x 4.6 cm. Left kidney measures 13.7 x 4.4 x 5.5 cm. Impression: Severe bilateral hydroureteronephrosis likely due to distal bilateral ureteral obstruction by calculi measuring 15 mm in the right ureter and 10 mm in the left ureter. Electronically Signed by Renny Moscoso MD 03/30/2019 01:52 P
== END ==
LOC: M RAD 12:48
PROVIDERS: ATTEND Internal Medicine
DX: Z87.448 Personal history of other diseases of urinary system (principal); N13.2 Hydronephrosis with renal and ureteral calculous obstruction

== ENCOUNTER 2019-04-05 12:07 | Day surgery (SDC) | payer MEDICARE, OTHER ==
[~2019-04-05] VITALS: Ht 177.8 cm; Wt 89.7 kg
[~2019-04-05 12:07] MED LIST changes: -CALC600T57 PO; -CIPR-250 PO; -KP F1200 PO; -ONETAB9 PO; -TRAM50TA2 PO
[2019-04-05] MEDS ORDERED: ONETAB9 PO (13:49)
[2019-04-05] MEDS ORDERED: CALC600T57 PO (13:49)
[2019-04-05] MEDS ORDERED: KP F1200 PO (13:49)
[2019-04-05] MEDS ORDERED: PROPOFOL 200 MG/20 ML VIAL As Ordered ONE (16:07)
[2019-04-05] MEDS ORDERED: MIDAZOLAM INJ 2 MG/2 ML VIAL (J2250) As Ordered ONE (16:07)
[2019-04-05] MEDS ORDERED: fentaNYL 100 MCG/2 ML INJECTION (J3010) As Ordered ONE (16:07)
[2019-04-05] MEDS ORDERED: LIDOCAINE 2% INJ 100 MG/5 ML SDV (FOR ANES.) As Ordered ONE (16:10)
[2019-04-05] MEDS ORDERED: CONRAY-60 60% 50ML VIAL (Q9961) As Ordered ONE (16:12)
[2019-04-05] MEDS ORDERED: ONDANSETRON 4MG/2ML VIAL (J2405) As Ordered ONE (16:48)
[2019-04-05] MEDS ORDERED: dexameTHASONE 4 MG/ML 1ML VIAL (J1100) As Ordered ONE (16:48)
[2019-04-05] MEDS ORDERED: ePHEDrine SULFATE 25 MG/5 ML(5MG/ML) SYRINGE As Ordered ONE (17:10)
[2019-04-05] MEDS ORDERED: traMADol 50 MG TAB PO PRN (18:00)
--- NOTE | 2019-04-05 18:27 | REP ---
Single image of the pelvis obtained in my absent[place] using a portable C-Arm device shows the distal end of a cystoscope with surgical clips in the pelvis. Electronically Signed by Roney Abarca DO 04/05/2019 07:45 P
[2019-04-05] MEDS ORDERED: LR 1,000 ML IV SCH (19:15)
[2019-04-05] MEDS ORDERED: fentaNYL 100 MCG/2 ML INJECTION (J3010) IV PRN (19:15)
[2019-04-05] MEDS ORDERED: PERCOCET 5MG/325MG TAB PO PRN (19:15)
[2019-04-05] MEDS ORDERED: ONDANSETRON 4MG/2ML VIAL (J2405) IV PRN (19:15)
[2019-04-05] MEDS ORDERED: METOCLOPRAMIDE INJ 10MG/2ML VIAL (J2765) IV PRN (19:15)
[2019-04-05 19:40] VITALS: BP 178/84
--- NOTE | 2019-04-05 21:38 | RO ---
DATE OF PROCEDURE: 04/05/2019 PREPROCEDURE DIAGNOSIS: Bilateral ureteral stones and recurrent prostate cancer. POSTPROCEDURE DIAGNOSIS: Recurrent prostate cancer. OPERATIVE PROCEDURE: Cystoscopy with irrigation of clot. SURGEON: Otilio Casper MD [employer] FORMS: ANESTHESIA: General. INDICATION: 88-year-old man had radical prostatectomy in the year 1999 for prostate cancer. He has not had followup for this the last six years. His creatinine was noted to be elevated. He had a renal ultrasound which showed bilateral hydronephrosis and what was thought to be distal ureteral calculi bilaterally measuring 10 to 15 mm on each side. These were not seen on KUB, but the patient gave a history or uric acid urolithiasis several decades ago. CT scan also failed to demonstrates stones, but again saw noted bilateral hydroureteronephrosis, creatinine 2.25, which is stable compared with recent values. PSA unfortunately is 198, up from 12.6 in 2013 when last PSA checked. He has not had gross hematuria, but has had some difficulty with voiding and splitting of his stream. His postvoid residual was in the 120s today. Urinalysis dipped for blood. DESCRIPTION OF PROCEDURE: After obtaining informed consent from the patient, he was taken to the operating room. After adequate anesthesia he was prepped and draped in the usual manner. A 22-Amharic diagnostic cystoscope was advanced into the bladder and the bladder inspected. There was extensive necrotic tumor with friable clot extending across the floor of the bladder and obscuring the ureteral orifices. For a prolonged period of time we attempted to deflect the tumor and visualize the orifices but this was not accomplished. We irrigated clot and necrotic tumor from the bladder. Because of his use of anticoagulants we thought it was be expeditious to leave an indwelling Snyder catheter and the procedure was concluded with placement of a #20-Amharic silastic Snyder catheter to leg bag. Patient to recovery in satisfactory condition. DISPOSITION: Discharge to home. He is to return to the office tomorrow for voiding trial at which point we will try to initiate Firmagon therapy. Medications Cipro 250 at bedtime and tramadol 50 mg every 8 hours as needed pain. Diet as tolerated. Activity light.
[2019-04-06] MEDS ORDERED: CIPROFLOXACIN 250 MG TAB PO SCH (06:00)
[2019-04-06] MEDS ORDERED: TRAM50TA2 PO (13:57)
[2019-04-06] MEDS ORDERED: CIPR-250 PO (13:57)
== END 2019-04-05 20:15 | disposition home or self-care (01) ==
LOC: M SDC 12:07
PROVIDERS: ATTEND Urology
DX: N32.89 Other specified disorders of bladder (principal); C61 Malignant neoplasm of prostate; N20.0 Calculus of kidney; I11.0 Hypertensive heart disease with heart failure; E11.9 Type 2 diabetes mellitus without complications; I50.9 Heart failure, unspecified; Z95.0 Presence of cardiac pacemaker; Z79.899 Other long term (current) drug therapy; Z79.01 Long term (current) use of anticoagulants
CPT/HCPCS: 36415; 51798; 52001; 74018; 74176; 74420; 80048; 84153; 87086; 96402; G0463; J0690; J1100; J2250; J2405; J3010; J9155; Q9961

== ENCOUNTER → 2019-04-05 | Outpatient (CLI) | payer MEDICARE, OTHER ==
[2019-04-05 12:53] LABS: CREATININE FOR GFR 2.25 MG/DL (0.70-1.30); GLOMERULAR FILTRATION RATE 29.5 (>35); POTASSIUM SERUM 4.1 MEQ/L (3.5-5.1)
--- NOTE | 2019-04-05 13:42 | REP ---
CT ABDOMEN AND PELVIS WITHOUT CONTRAST: CT abdomen and pelvis performed without oral or IV contrast. Sagittal and coronal reconstruction images are performed. Visualized lung bases are clear. The liver, gallbladder, spleen, adrenals and pancreas are grossly unremarkable. There is severe bilateral hydroureteronephrosis. There is moderate bilateral cortical thinning and atrophy, right greater than left. Ureterovesical junctions are obscured by adjacent metallic clips in the prostate bed and distal ureteral calculi cannot be excluded. There is mild diffuse bladder wall thickening. There is moderate atherosclerotic calcification of the abdominal aorta without aneurysm. I see no significant adenopathy in the abdomen or pelvis. No free air or free fluid is seen. No bowel wall thickening is seen. There is scattered diverticulosis of the colon. There are two adjacent anterior abdominal wall hernias at the level of the upper pelvis. The left contains fat only and has an aperture of about 1.2 cm. The right contains fat and a small amount of bowel and has an aperture of about 9 mm. There is another right paramedian anterior abdominal hernia just inferior to that containing a small amount of fat, aperture is approximately 1 cm. Heterogeneous density in the L2 vertebral body may represent metastatic disease. There is extensive sclerotic change in the right pelvic bones suspicious for metastatic disease. There is mild sclerotic change in the superomedial left iliac bone which may also represent metastatic disease. An ill-defined sclerotic lesion is seen in the left ischium near the hip joint. IMPRESSION: Severe bilateral hydroureteronephrosis. No definite renal or ureteral calculus. The distal ends of the ureters are not visualized due to streak artifact from metallic clips in the adjacent prostate bed. There is mild diffuse bladder wall thickening. No other acute findings are seen. There are three adjacent anterior abdominal hernias at the level of the upper pelvis just above the umbilicus. There is no evidence of strangulation. No acute bowel inflammation. Sclerotic densities in various pelvic bones and heterogeneous density in the L2 vertebral body may represent metastatic disease. Unreviewed
== END ==
LOC: M RAD 11:33
PROVIDERS: ATTEND Urology
DX: N13.0 Hydronephrosis with ureteropelvic junction obstruction (principal); K46.9 Unspecified abdominal hernia without obstruction or gangrene; N20.0 Calculus of kidney

== ENCOUNTER → 2019-04-05 | Outpatient (CLI) | payer MEDICARE, OTHER ==
--- NOTE | 2019-04-05 10:18 | REP ---
KUB, ONE VIEW: HISTORY: Kidney stone. A small amount of air is present in the intestine. There are no air fluid levels or dilated loops of intestine. There is no pneumoperitoneum. There is no definite nephrocalcinosis. Surgical clips are present in the pelvis. IMPRESSION: There is no definite nephrocalcinosis. Electronically Signed by Jesús Davis MD 04/05/2019 10:29 A
== END ==
LOC: M SMT 09:29
PROVIDERS: ATTEND Urology
DX: N20.0 Calculus of kidney (principal)

== ENCOUNTER → 2019-04-16 | Outpatient (CLI) | payer MEDICARE, OTHER ==
[~2019-04-16] MED LIST changes: +CALC600T57 PO; +CIPR-250 PO; +KP F1200 PO; +ONETAB9 PO; +TRAM50TA2 PO
[2019-04-16 13:45] LABS: ALBUMIN 3.1 GM/DL (3.2-5.2); BILIRUBIN,TOTAL 0.2 MG/DL (0.2-1.0); CALCIUM LEVEL 10.2 MG/DL (8.8-10.2); CREATININE FOR GFR 1.82 MG/DL (0.70-1.30); GLOMERULAR FILTRATION RATE 37.7 (>35); POTASSIUM SERUM 4.9 MEQ/L (3.5-5.1)
[2019-04-16 13:48] LABS: HEMATOCRIT 35.2 % (42.0-52.0); HEMOGLOBIN 11.2 g/dl (13.5-17.5); MEAN CORPUSCULAR HEMOGLOBIN 30.4 pg (27.0-33.0); MEAN CORPUSCULAR HGB CONC 31.8 g/dl (32.0-36.5); MEAN CORPUSCULAR VOLUME 95.4 fl (80.0-96.0); PLATELET COUNT, AUTOMATED 249 10^3/uL (150-450); RED BLOOD COUNT 3.69 10^6/uL (4.30-6.10); WHITE BLOOD COUNT 5.9 10^3/uL (4.0-10.0)
[2019-04-16 13:53] LABS: PTH INTACT 19.9 PG/ML (18.5-88.0)
== END ==
LOC: M SMT 09:57
PROVIDERS: ATTEND Internal Medicine
DX: C61 Malignant neoplasm of prostate (principal); I12.9 Hypertensive chronic kidney disease with stage 1 through stage 4 chronic kidney disease, or unspecified chronic kidney disease; N18.3 Chronic kidney disease, stage 3 (moderate)
CPT/HCPCS: 36415; 51798; 80053; 83970; 85027; 96402; G0463; J9155

== ENCOUNTER → 2019-05-01 | Outpatient (CLI) | payer MEDICARE, OTHER ==
[~2019-05-01] MED LIST changes: -BENA10TA6 PO; +BENA1TAB24 PO
--- NOTE | 2019-05-01 11:46 | REP ---
Clinical: Hydronephrosis. Technique: Real time angeles scale and color evaluation using curved array transducer. Findings: Right kidney is normal in reniform shape and measures 11.5 x 6.7 x 4.8 cm marked cortical thinning and severe hydroureteronephrosis suggesting chronic change. No obvious intrarenal calculus or mass lesion. Left kidney is normal in reniform shape and measures 13.2 x 5.1 x 5.6 cm with moderate high hydroureteronephrosis. No obvious intrarenal calculus or mass lesion appreciated. Evaluation of the bladder demonstrates trabeculated wall thickening as well as a right ureteral jet. No left ureteral jet noted during examination. There is a small hypoechoic/cystic area measuring 8.2 mm diameter adjacent to the right ureteral jet along the right posterior bladder wall. Prevoid bladder measures 7.5 x 6.3 x 5.0 cm (154 ml). Postvoid bladder measures 4.3 x 5.7 x 3.8 cm (61 ml). Postvoid residual equals 39%. Impression: 1. Bilateral hydronephrosis and hydroureter (right greater than left). Findings suggest longstanding right-sided hydronephrosis without complete obstruction, but the possibility of complete left obstruction cannot be excluded based on the lack of the ureteral jet during exam. 2. Small 8 mm hypoechoic/cystic area within the bladder is nonspecific and may warrant reevaluation and follow-up. Electronically Signed by Renny Moscoso MD 05/01/2019 11:37 A
== END ==
LOC: M RAD 09:44
PROVIDERS: ATTEND Nurse Practitioner Family
DX: N13.30 Unspecified hydronephrosis (principal); N32.9 Bladder disorder, unspecified

== ENCOUNTER → 2019-05-15 | Outpatient (CLI) | payer MEDICARE, OTHER ==
[~2019-05-15] MED LIST changes: +BENA10TA9 PO; -BENA1TAB24 PO
== END ==
LOC: M SMT 10:18
PROVIDERS: ATTEND Nurse Practitioner Family
DX: C61 Malignant neoplasm of prostate (principal)

== ENCOUNTER → 2019-05-24 | Outpatient (CLI) | payer MEDICARE, OTHER ==
[~2019-05-24] MED LIST changes: -BENA10TA9 PO; +BENA1TAB24 PO
[2019-05-24 14:12] LABS: CALCIUM LEVEL 10.3 MG/DL (8.8-10.2); CREATININE FOR GFR 1.91 MG/DL (0.70-1.30); GLOMERULAR FILTRATION RATE 35.6 (>35); POTASSIUM SERUM 4.8 MEQ/L (3.5-5.1)
== END ==
LOC: M SMT 11:26
PROVIDERS: ATTEND Urology
DX: N13.30 Unspecified hydronephrosis (principal); C61 Malignant neoplasm of prostate
CPT/HCPCS: 36415; 80048; 96402; G0463; J9217

== ENCOUNTER → 2019-07-05 | Outpatient (REF) | payer MEDICARE, OTHER ==
[~2019-07-05] MED LIST changes: +BENA10TA9 PO; -BENA1TAB24 PO
[2019-07-05 10:25] LABS: APPEARANCE, URINE CLEAR (CLEAR); BACTERIA, URINE AUTO NEGATIVE (NEGATIVE); BILIRUBIN, URINE AUTO NEGATIVE (NEGATIVE); BLOOD, URINE BLOOD NEGATIVE (NEGATIVE); COLOR, URINE YELLOW (YELLOW); GLUCOSE, URINE (UA) AUTO NEGATIVE (NEGATIVE); KETONE, URINE AUTO NEGATIVE (NEGATIVE); LEUKOCYTE ESTERASE, URINE AUTO NEGATIVE (NEGATIVE); NITRITE, URINE AUTO NEGATIVE (NEGATIVE); PROTEIN, URINE AUTO NEGATIVE (NEGATIVE); RBC, URINE AUTO 8 /HPF (0-3); SPECIFIC GRAVITY URINE AUTO 1.014 (1.002-1.035); SQUAMOUS EPITHELIAL CELL UR AU 0 /HPF (0-6); UROBILINOGEN, URINE AUTO 0.2 mg/dL (0.0-2.0); WBC, URINE AUTO 0 /HPF (0-3)
[2019-07-05 10:28] LABS: HEMOGLOBIN 12.5 g/dl (13.5-17.5); MEAN CORPUSCULAR HEMOGLOBIN 31.5 pg (27.0-33.0); MEAN CORPUSCULAR HGB CONC 32.9 g/dl (32.0-36.5); MEAN CORPUSCULAR VOLUME 95.7 fl (80.0-96.0); PLATELET COUNT, AUTOMATED 185 10^3/uL (150-450); RED BLOOD COUNT 3.97 10^6/uL (4.30-6.10); WHITE BLOOD COUNT 5.8 10^3/uL (4.0-10.0)
[2019-07-05 11:02] LABS: ALBUMIN 3.4 GM/DL (3.2-5.2); ALT/SGPT 15 U/L (12-78); BILIRUBIN,TOTAL 0.5 MG/DL (0.2-1.0); BLOOD UREA NITROGEN 45 MG/DL (7-18); CALCIUM LEVEL 9.9 MG/DL (8.8-10.2); CARBON DIOXIDE LEVEL 28 MEQ/L (21-32); CHLORIDE LEVEL 106 MEQ/L (98-107); CREATININE FOR GFR 1.94 MG/DL (0.70-1.30); FOLATE > 24.0 NG/ML; GLOMERULAR FILTRATION RATE 34.9 (>35); GLUCOSE, FASTING 136 MG/DL (70-100); MAGNESIUM LEVEL 2.4 MG/DL (1.8-2.4); MALB URINE SIEMENS 18.6 MG/L; MAU/CREAT RATIO 17.5 MCG/MG (0.0-30.0); SODIUM LEVEL 141 MEQ/L (136-145); TOTAL PROTEIN 7.1 GM/DL (6.4-8.2); VITAMIN B12 LEVEL 1511 PG/ML
== END ==
LOC: M SFHCPLAZ 08:21
PROVIDERS: ATTEND Internal Medicine
DX: Z85.46 Personal history of malignant neoplasm of prostate (principal); I12.9 Hypertensive chronic kidney disease with stage 1 through stage 4 chronic kidney disease, or unspecified chronic kidney disease; E11.9 Type 2 diabetes mellitus without complications; R53.82 Chronic fatigue, unspecified; Z87.448 Personal history of other diseases of urinary system

== ENCOUNTER → 2020-03-04 | Outpatient (REF) | payer MEDICARE, OTHER ==
[~2020-03-04] MED LIST changes: -BENA10TA9 PO; +BENA1TAB24 PO
[2020-03-04 11:04] LABS: HEMATOCRIT 37.4 % (42.0-52.0); HEMOGLOBIN 12.2 g/dl (13.5-17.5); MEAN CORPUSCULAR HEMOGLOBIN 31.5 pg (27.0-33.0); MEAN CORPUSCULAR HGB CONC 32.6 g/dl (32.0-36.5); MEAN CORPUSCULAR VOLUME 96.6 fl (80.0-96.0); PLATELET COUNT, AUTOMATED 183 10^3/uL (150-450); RED BLOOD COUNT 3.87 10^6/uL (4.30-6.10); WHITE BLOOD COUNT 6.5 10^3/uL (4.0-10.0)
[2020-03-04 11:51] LABS: CREATININE FOR GFR 1.79 MG/DL (0.70-1.30); GLOMERULAR FILTRATION RATE 38.3 (>35); PTH INTACT 23.2 PG/ML (18.5-88.0)
[2020-03-04 11:52] LABS: ALBUMIN 3.4 GM/DL (3.2-5.2); BILIRUBIN,TOTAL 0.3 MG/DL (0.2-1.0); CALCIUM LEVEL 10.3 MG/DL (8.8-10.2); CHOLESTEROL RISK RATIO 4.375 (<5); POTASSIUM SERUM 4.9 MEQ/L (3.5-5.1); TOTAL PROTEIN 7.2 GM/DL (6.4-8.2)
[2020-03-04 11:55] LABS: HEMOGLOBIN A1c 8.3 %
== END ==
LOC: M PLALAB 08:41
PROVIDERS: ATTEND Internal Medicine
DX: C61 Malignant neoplasm of prostate (principal); E11.9 Type 2 diabetes mellitus without complications; E78.00 Pure hypercholesterolemia, unspecified; N18.3 Chronic kidney disease, stage 3 (moderate)

== ENCOUNTER → 2020-04-09 | Outpatient (CLI) | payer MEDICARE, OTHER | LOC: M PLALAB 10:22 | PROVIDERS: ATTEND Urology | DX: C61 Malignant neoplasm of prostate (principal) ==

== ENCOUNTER → 2020-07-10 | Outpatient (CLI) | payer MEDICARE, OTHER ==
[2020-07-10 12:16] LABS: HEMATOCRIT 34.8 % (42.0-52.0); HEMOGLOBIN 11.7 g/dl (13.5-17.5); MEAN CORPUSCULAR HEMOGLOBIN 32.9 pg (27.0-33.0); MEAN CORPUSCULAR HGB CONC 33.6 g/dl (32.0-36.5); MEAN CORPUSCULAR VOLUME 97.8 fl (80.0-96.0); PLATELET COUNT, AUTOMATED 182 10^3/uL (150-450); RED BLOOD COUNT 3.56 10^6/uL (4.30-6.10); WHITE BLOOD COUNT 4.8 10^3/uL (4.0-10.0)
[2020-07-10 12:35] LABS: ALBUMIN 3.3 GM/DL (3.2-5.2); BILIRUBIN,TOTAL 0.3 MG/DL (0.2-1.0); CALCIUM LEVEL 10.1 MG/DL (8.8-10.2); CHOLESTEROL RISK RATIO 2.932 (<5); CREATININE FOR GFR 1.74 MG/DL (0.70-1.30); GLOMERULAR FILTRATION RATE 39.5 (>35); TOTAL PROTEIN 6.6 GM/DL (6.4-8.2)
[2020-07-10 12:44] LABS: CREATININE, URINE 62.2 MG/DL; MALB URINE SIEMENS 12.5 MG/L
[2020-07-10 12:52] LABS: HEMOGLOBIN A1c 9.4 %
== END ==
LOC: M PLALAB 08:36
PROVIDERS: ATTEND Internal Medicine
DX: E11.9 Type 2 diabetes mellitus without complications (principal); E78.00 Pure hypercholesterolemia, unspecified; C61 Malignant neoplasm of prostate; I12.9 Hypertensive chronic kidney disease with stage 1 through stage 4 chronic kidney disease, or unspecified chronic kidney disease

== ENCOUNTER → 2021-03-16 | Outpatient (REF) | payer MEDICARE, OTHER ==
[~2021-03-16] MED LIST changes: -GLYB5TA PO; +GLYB5TAB6 PO; +HYDR-3490 PO; -HYDR25TAB PO
[2021-03-16 10:16] LABS: BASO # 0.1 10^3/uL (0.0-0.2); BASO % 0.9 % (0.0-1.0); EOS # 0.1 10^3/uL (0.0-0.5); EOS % 2.3 % (0.0-3.0); HEMATOCRIT 37.9 % (42.0-52.0); HEMOGLOBIN 12.3 g/dl (13.5-17.5); LYMPH # 1.6 10^3/uL (1.5-5.0); LYMPH % 27.6 % (24.0-44.0); MEAN CORPUSCULAR HEMOGLOBIN 31.7 pg (27.0-33.0); MEAN CORPUSCULAR HGB CONC 32.5 g/dl (32.0-36.5); MEAN CORPUSCULAR VOLUME 97.7 fl (80.0-96.0); MONO # 0.6 10^3/uL (0.0-0.8); MONO % 9.7 % (2.0-8.0); NEUTROPHILS # 3.3 10^3/uL (1.5-8.5); NEUTROPHILS % 59.1 % (36.0-66.0); PLATELET COUNT, AUTOMATED 184 10^3/uL (150-450); RED BLOOD COUNT 3.88 10^6/uL (4.30-6.10); WHITE BLOOD COUNT 5.7 10^3/uL (4.0-10.0)
[2021-03-16 10:47] LABS: ALBUMIN 3.1 GM/DL (3.2-5.2); BILIRUBIN,TOTAL 0.3 MG/DL (0.2-1.0); CALCIUM LEVEL 9.8 MG/DL (8.8-10.2); CHOLESTEROL RISK RATIO 2.883 (<5); CREATININE FOR GFR 1.44 MG/DL (0.70-1.30); GLOMERULAR FILTRATION RATE 49.2 (>35); MAGNESIUM LEVEL 2.3 MG/DL (1.8-2.4); POTASSIUM SERUM 4.8 MEQ/L (3.5-5.1); PROSTATIC SPECIFIC AG MONITOR 0.02 NG/ML (< 4.00); TOTAL PROTEIN 6.5 GM/DL (6.4-8.2)
[2021-03-16 10:54] LABS: PTH INTACT 25.2 PG/ML (18.5-88.0)
[2021-03-16 13:13] LABS: HEMOGLOBIN A1c 9.4 %
== END ==
LOC: M PLALAB 08:28
PROVIDERS: ATTEND Internal Medicine
DX: R53.82 Chronic fatigue, unspecified (principal); I12.9 Hypertensive chronic kidney disease with stage 1 through stage 4 chronic kidney disease, or unspecified chronic kidney disease; E11.9 Type 2 diabetes mellitus without complications; E78.00 Pure hypercholesterolemia, unspecified; N18.30 Chronic kidney disease, stage 3 unspecified; C61 Malignant neoplasm of prostate